=== PATIENT | female | born 1970 | race Asian ===

== ENCOUNTER 2018-09-12 14:59 | Observation (INO) | payer OTHER ==
--- NOTE | 2018-09-12 15:17 | PDOC ---
Rapid Medical Evaluation Time Seen by Provider: 09/12/18 15:13 Medical Evaluation: Allergies Allergy/AdvReac Type Severity Reaction Status Date / Time iron Allergy Unknown Verified 09/12/18 15:14 MAPLE POLLEN Allergy Mild Uncoded 09/12/18 15:14 I have performed a brief in-person evaluation of this patient. The patient presents with a chief complaint of: nausea x 1 week. lower abd pain. no vomiting. no diarrhea. Patient was sent by her PCP to f/u on nausea for possible cholecystitis Pertinent physical exam findings: none I have ordered the following: labs, UA The patient will proceed to the ED for further evaluation. Discharge Disposition - Diagnosis Nausea - Referrals - Patient Instructions - Post Discharge Activity
[2018-09-12 15:18] VITALS: BMI 29.8
--- NOTE | 2018-09-12 16:12 | PDOC ---
History of Present Illness - General Chief Complaint: Pain, Acute Stated Complaint: SENT BY PCP,WEAKNESS Time Seen by Provider: 09/12/18 15:13 - History of Present Illness Initial Comments: 48 yo F w a hx of frequent UTIs, GERD, fibroids - hysterectomy but has a cervix - last PAP 2016 - normal, allergic rhinitis, has been experiencing lower abdominal and pelvic pain for the past month. The pain is on and off and has been getting worse for te last 10 days. She started experiencing nausea, dizziness, and near syncope today so went back to her PCP - Hayley Ogden - who sent her to the ER to get a cat scan with contrast of her abdomen and pelvis. The near syncope, dizziness, lightheadedness began today and appears not to be connected to the pelvic pain issue. She denies recent fevers, chills, or infections. Denies hematuria, STDs, or abnormal vaginal discharge. Denies chest pain, back pain, dysuria, frequency, urgency, recent travel. PCP: Hayley Ogden Allergies: Pollen, iron Psh: Hysterectomy (Still has cervix) Social Hx: Occasional alcohol consumption. Denies smoking, or illicit drug usage. Past History - Past Medical History Allergies/Adverse Reactions: Allergies Allergy/AdvReac Type Severity Reaction Status Date / Time iron Allergy Unknown Verified 09/12/18 15:14 MAPLE POLLEN Allergy Mild Uncoded 09/12/18 15:14 Home Medications: Ambulatory Orders Multivitamin [Multivitamins] 1 each PO UTDICT 10/02/13 Anemia: No Asthma: No Cancer: No Cardiac Disorders: No CVA: No COPD: No CHF: No Dementia: No Diabetes: No GI Disorders: No Disorders: No HTN: No Hypercholesterolemia: No Liver Disease: No Seizures: No Thyroid Disease: No - Surgical History Abdominal Surgery: No Appendectomy: No Cardiac Surgery: No Cholecystectomy: No Lung Surgery: No Neurologic Surgery: No Orthopedic Surgery: No - Suicide/Smoking/Psychosocial Hx Smoking History: Never smoked Have you smoked in the past 12 months: No If you are a former smoker, when did you quit?: 2010 Hx Alcohol Use: Yes (SOCIALLY) Drug/Substance Use Hx: No Substance Use Type: None Hx Substance Use Treatment: No Review of Systems - Review of Systems Comments:: CONSTITUTIONAL: Present: Fatigue Absent: fever, no chills EYES: Absent: visual changes ENT: Absent: ear pain, no sore throat CARDIOVASCULAR: Absent: chest pain, no palpitations RESPIRATORY: Present: SOB Absent: cough GI: Present: Abdominal pain, Nausea Absent: no vomiting, no constipation, no diarrhea GENITOURINARY: Absent: dysuria, no frequency, no hematuria MUSKULOSKELETAL: Absent: back pain, no arthralgia, no myalgia SKIN: Absent: rash NEURO: Absent: headache *Physical Exam - Vital Signs Last Vital Signs Temp Pulse Resp BP Pulse Ox 98 F 63 18 120/63 100 09/12/18 15:17 09/12/18 15:17 09/12/18 15:17 09/12/18 15:17 09/12/18 15:17 - Physical Exam Comments: GENERAL: Well-appearing, well-nourished. No apparent distress. HEENT: Normocephalic, atraumatic. PERRL, EOM intact. CARDIOVASCULAR: Normal S1, S2. Regular rate and rhythm. PULMONARY: Clear to auscultation bilaterally. ABDOMEN: Lower abdomen is tender. Normal BS. Soft, non-distended. Negative Silva, negative psoas, rovsig. No rebound or guarding. Abdomen is not peritoneal. EXTREMITIES: Normal ROM in all four extremities. No gross deformities. SKIN: Warm, dry. No rash NEUROLOGICAL: No focal neurological deficits. Moderate Sedation - Procedure Monitoring Vital Signs: Procedure Monitoring Vital Signs Temperature 98 F 09/12/18 15:17 Pulse Rate 63 09/12/18 15:17 Respiratory Rate 18 09/12/18 15:17 Blood Pressure 120/63 09/12/18 15:17 O2 Sat by Pulse Oximetry (%) 100 09/12/18 15:17 ED Treatment Course - LABORATORY CBC & Chemistry Diagram: 09/12/18 16:00 09/12/18 16:00 Medical Decision Making - Medical Decision Making 48 yo F w a hx of frequent UTIs, GERD, fibroids - hysterectomy but has a cervix - last PAP 2016 - normal, allergic rhinitis, has been experiencing lightheadedness, near syncope, nausea and vomiting. Also lower abdominal and pelvic pain for the past month. DDx IBNLT: Arrhythmia, acs, gastroenteritis, constipation, UTI/pylo, Tumor, fibroids, endometriosis, kidney stones, pelvic pain syndrome, vascular anomaly Plan: Cbc, Cmp, Trop, Hcg, Lipase, CXR, UA, CTAP, re-assess. Labs, cxr unremarkable. CTAP showed marked fecal retention and constipation Will admit patient to tele obs for near syncope. *DC/Admit/Observation/Transfer Diagnosis at time of Disposition: Nausea, Constipation, Near syncope - Discharge Dispostion Condition at time of disposition: Stable Decision to Admit order: Yes - Referrals Referrals: Hayley Ogden [Non Staff, Medical] - - Patient Instructions Printed Discharge Instructions: Constipation (Alternative Therapy), Constipation, DI for Pelvic Pain Additional Instructions: You came into the ER sent from your primary care doctor to have a cat scan performed. We did the cat scan which showed you have alot of feces in your abdomen and that you are likely constipated. We think it would be very smart to go to the pharmacy and milk pickup driver a miralax. This will help with your constipation. Please make sure to schedule a follow up appointment with Hayley Ogden in the next 3 to 5 days. Come back to the ER if your pain worsens, you develop a fever, start vomiting or have any other new or worsening concerns. Thank you for coming to the [facility] ER. We hope you feel better soon! Print Language: YI - Post Discharge Activity
[2018-09-12 16:42] LABS: BASO % 0.4 % (0-2.0); EOS % 0.5 % (0-4.5); HEMATOCRIT 41.7 % (32.4-45.2); HEMOGLOBIN 14.5 GM/dL (10.7-15.3); LYMPH % 11.7 % (8-40); MCH 29.5 pg (25.7-33.7); MCHC 34.7 g/dl (32.0-36.0); MEAN CELL VOLUME 85.1 fl (80-96); MEAN PLT VOLUME 9.7 fl (7.5-11.1); MONO % 6.3 % (3.8-10.2); NEUT % 81.1 % (42.8-82.8); PLATELET COUNT 244 K/MM3 (134-434); RBC 4.91 M/mm3 (3.60-5.2); RDW 12.7 % (11.6-15.6); WHITE BLOOD COUNT 11.3 K/mm3 (4.0-10.0)
[2018-09-12 16:48] LABS: HCG,QUALITATIVE URINE Negative
[2018-09-12 16:58] LABS: URINE APPEARANCE CLEAR; URINE BILIRUBIN NEGATIVE (<2.0 mg/dL); URINE COLOR COLORLESS; URINE GLUCOSE (UA) NEGATIVE (NEGATIVE); URINE KETONE NEGATIVE (NEGATIVE); URINE LEUK ESTERASE TRACE (NEGATIVE); URINE NITRITE NEGATIVE (NEGATIVE); URINE PROTEIN NEGATIVE (NEGATIVE); URINE UROBILINOGEN NEGATIVE mg/dL (0.2-1.0)
[2018-09-12 17:18] LABS: EPI CELLS RARE /HPF (FEW)
[2018-09-12 17:20] LABS: ALBUMIN 3.8 g/dl (3.4-5.0); ALK PHOS 87 U/L (45-117); ANION GAP 7 MMOL/L (8-16); BILIRUBIN,TOTAL 0.3 mg/dL (0.2-1); BLOOD UREA NITROGEN 15 mg/dL (7-18); CALCIUM 9.1 mg/dL (8.5-10.1); CHLORIDE 108 mmol/L (98-107); CO2 26 mmol/L (21-32); GLUCOSE,RANDOM 90 mg/dL (74-106); LIPASE 136 U/L (73-393); POTASSIUM 3.8 mmol/L (3.5-5.1); SGOT/AST 23 U/L (15-37); SGPT/ALT 36 U/L (13-61); SODIUM 140 mmol/L (136-145)
--- NOTE | 2018-09-12 21:17 | PDOC ---
Attending Attestation - Resident Resident Name: Hair Blas - ED Attending Attestation I have performed the following: I have examined & evaluated the patient, The case was reviewed & discussed with the resident, I agree w/resident's findings & plan, Exceptions are as noted - HPI HPI: 09/12/18 21:03 The patient is a 48 year old female, with a significant past medical history of frequent UTIs, GERD, fibroids s/p hysterectomy who presents to the ED complaining of lower abdominal pain for the past month and episodes of lightheadness since this morning. She describes the abd pain as intermittent in nature but worsening a bit over the last 2 weeks. She reports 5 episodes of lightheadness, nausea, and feeling like she will pass out since this morning. No LOC. She denies increased severity of pain prior to these episodes of dizziness, states her abd pain remains at its baseline. She also reports palpitaitons prior to 1 or 2 of the episodes. She went to her PMD today, Dr. Hayley Ogden, who sent her to the ER to get a ct scan with contrast of her abdomen and pelvis. Denies constipation, last BM yestereday The patient denies chest pain, shortness of breath, headache, fever, chills, vomiting, diarrhea or constipation. Denies focal weakness/numbness. Denies dysuria, frequency, urgency and hematuria. PCP: Hayley Ogden Allergies: Pollen, iron Psh: Hysterectomy (Still has cervix) Social Hx: Occasional alcohol consumption. Denies smoking, or illicit drug usage. - Physicial Exam PE: 09/12/18 21:17 GENERAL: Awake, alert, and fully oriented, in no acute distress HEAD: No signs of trauma EYES: PERRLA, EOMI, sclera anicteric, conjunctiva clear ENT: Nares patent, oropharynx clear without exudates. Moist mucosa NECK: Normal ROM, supple, no lymphadenopathy, JVD, or masses LUNGS: Breath sounds equal, clear to auscultation bilaterally. No wheezes, and no crackles HEART: Regular rate and rhythm, normal S1 and S2, no murmurs, rubs or gallops ABDOMEN: Soft, nontender, normoactive bowel sounds. No guarding, no rebound. No masses EXTREMITIES: Normal range of motion, trace b/l pitting edema. No cords, erythema , or tenderness NEUROLOGICAL: Normal speech, cranial nerves intact, 5/5 strength in all 4 extremities, normal sensation to light touch in all 4 extremities, normal cerebellar exam, normal gait SKIN: Warm, Dry, normal turgor, no rashes or lesions noted. - Medical Decision Making 09/12/18 21:19 48yo F presents to the ED with 1 month of abd pain and 5 episodes of lightheadness, nausea and pre-syncope. Pt also reporting palpitations. Vitals wnl. Exam with trace LE pitting edema b/l. CTAP reveals moderate stool burden, b /l small ovarian cysts but no acute pathology. On re-evaluation after CTAP, pt had another episode of nausea and lightheadedness while sitting. Unclear etology of pre-syncopal episodes but in light of persistence as well as intermittent palpitations, will admit to obs on tele monitoring. Heart Score/ECG Review #1 09/12/18 21:19 Twelve-lead EKG was performed and reviewed by me. Normal sinus rhythm, rate 64. Normal axis and intervals. No ST elevations or T-wave inversions.
[2018-09-12] MEDS ORDERED: SODIUM CHLORIDE 0.9% 500 ML INFUS.BAG IV ONE (22:28)
[2018-09-12] MEDS ORDERED: ONDANSETRON 4 MG/2 ML VIAL IVPUSH ONE (22:28)
[2018-09-12] MEDS ORDERED: ONDANSETRON 4 MG/2 ML VIAL ONE (22:57)
[2018-09-12] MEDS ORDERED: POLYETHYLENE GLYCOL 3350 119 GM BTL PO ONE (23:19)
[2018-09-12] MEDS ORDERED: ONDANSETRON 4 MG/2 ML VIAL IVPUSH PRN (23:19)
--- NOTE | 2018-09-12 23:24 | HP ---
CHIEF COMPLAINT: Abdominal/Pelvic Pain, Dizziness, nausea PCP: Melvi HISTORY OF PRESENT ILLNESS: 48 yo female with PMH of Frequent UTIs, GERD, Fibroids s/p Partial hysterectomy , presented to the ED with complaint of one month of intermittent abdominal pain which has worsened over the last few days and increased more so today, complicated by 2 episodes of nausea and lightheadedness + 3 further episodes in the ED. She states that she has seen her pcp multiple times recently for the abdominal pain. She was supposed to get a CT abdomen, though she was waiting on a referral and insurance approval. When her pain worsened today and she had the first episode of nausea and lightheadedness, she went to see her pcp. She had another episode in the office, her pcp did an EKG and sent her to the ED for further evaluation. She currently denies any symptoms other than some mild suprapubic pain. ER course was notable for: (1) CT Abdomen and Pelvis, b/l ovarian follicles, moderate colonic fecal retention (2) EKG normal sinus without any concerning ST/T wave changes (3) Zofran Recent Travel: none PAST MEDICAL HISTORY: Frequent UTIs, GERD, Fibroids s/p Partial hysterectomy PAST SURGICAL HISTORY: Partial Hysterectomy Social History: Smoking: Denies Alcohol: Denies Drugs: Denies Family History: Allergies iron Allergy (Unknown, Verified 09/12/18 15:14) MAPLE POLLEN Allergy (Mild, Uncoded 09/12/18 15:14) SNEEZING HOME MEDICATIONS: Home Medications Medication Instructions Recorded Multivitamin [Multivitamins] 1 each PO UTDICT 10/02/13 REVIEW OF SYSTEMS CONSTITUTIONAL: Absent: fever, chills, diaphoresis, generalized weakness, malaise, loss of appetite, weight change HEENT: Absent: rhinorrhea, nasal congestion, throat pain, throat swelling, difficulty swallowing, mouth swelling, ear pain, eye pain, visual changes CARDIOVASCULAR: Absent: chest pain, syncope, palpitations, irregular heart rate, lightheadedness , peripheral edema RESPIRATORY: Absent: cough, shortness of breath, dyspnea with exertion, orthopnea, wheezing, stridor, hemoptysis GASTROINTESTINAL: abdominal pain, nausea Absent: , abdominal distension, vomiting, diarrhea, constipation, melena, hematochezia GENITOURINARY: Absent: dysuria, frequency, urgency, hesitancy, hematuria, flank pain, genital pain MUSCULOSKELETAL: Absent: myalgia, arthralgia, joint swelling, back pain, neck pain SKIN: Absent: rash, itching, pallor HEMATOLOGIC/IMMUNOLOGIC: Absent: easy bleeding, easy bruising, lymphadenopathy, frequent infections ENDOCRINE: Absent: unexplained weight gain, unexplained weight loss, heat intolerance, cold intolerance NEUROLOGIC: Absent: headache, focal weakness or paresthesias, dizziness, unsteady gait, seizure, mental status changes, bladder or bowel incontinence PSYCHIATRIC: Absent: anxiety, depression, suicidal or homicidal ideation, hallucinations. PHYSICAL EXAMINATION Vital Signs - 24 hr 09/12/18 09/12/18 15:17 19:33 Temperature 98 F 98.1 F Pulse Rate 63 Pulse Rate [ 70 Left Radial] Respiratory 18 Rate Blood Pressure 120/63 Blood Pressure 96/74 [Left Arm] O2 Sat by Pulse 100 98 Oximetry (%) GENERAL: A&O, no acute distress HEAD: Normocephalic, atraumatic. EYES: PERRL, no scleral icterus EARS, NOSE, THROAT: oropharynx clear without exudates. Moist mucous membranes. NECK: supple without lymphadenopathy LUNGS: CTA b/l, no crackles or wheezes HEART: Regular rate and rhythm, normal S1 and S2 without murmur ABDOMEN: Soft, suprapubic region tender to palpation, normoactive bowel sounds MUSCULOSKELETAL: No bony deformities or tenderness. EXTREMITIES: 2+ pulses, warm, well-perfused. No peripheral edema. NEUROLOGICAL: Cranial nerves II-XII grossly intact. Normal speech. Laboratory Results - last 24 hr 09/12/18 09/12/18 09/12/18 15:52 16:00 16:00 WBC 11.3 H RBC 4.91 Hgb 14.5 Hct 41.7 MCV 85.1 MCH 29.5 MCHC 34.7 RDW 12.7 Plt Count 244 D MPV 9.7 Absolute Neuts (auto) 9.2 H Neutrophils % 81.1 Lymphocytes % 11.7 D Monocytes % 6.3 Eosinophils % 0.5 Basophils % 0.4 Nucleated RBC % 0 Sodium 140 Potassium 3.8 Chloride 108 H Carbon Dioxide 26 Anion Gap 7 L BUN 15 Creatinine 1.0 Creat Clearance w eGFR 58.93 POC Glucometer Random Glucose 90 Calcium 9.1 Total Bilirubin 0.3 AST 23 ALT 36 Alkaline Phosphatase 87 Troponin I < 0.02 Total Protein 7.0 Albumin 3.8 Lipase 136 Urine Color Colorless Urine Appearance Clear Urine pH 6.0 Ur Specific [place] 1.002 L Urine Protein Negative Urine Glucose (UA) Negative Urine Ketones Negative Urine Blood 1+ H Urine Nitrite Negative Urine Bilirubin Negative Urine Urobilinogen Negative Ur Leukocyte Esterase Trace Urine WBC (Auto) <1 Urine RBC (Auto) 1 Ur Epithelial Cells Rare Urine HCG, Qual Negative 09/12/18 16:11 WBC RBC Hgb Hct MCV MCH MCHC RDW Plt Count MPV Absolute Neuts (auto) Neutrophils % Lymphocytes % Monocytes % Eosinophils % Basophils % Nucleated RBC % Sodium Potassium Chloride Carbon Dioxide Anion Gap BUN Creatinine Creat Clearance w eGFR POC Glucometer [phone] Random Glucose Calcium Total Bilirubin AST ALT Alkaline Phosphatase Troponin I Total Protein Albumin Lipase Urine Color Urine Appearance Urine pH Ur Specific [place] Urine Protein Urine Glucose (UA) Urine Ketones Urine Blood Urine Nitrite Urine Bilirubin Urine Urobilinogen Ur Leukocyte Esterase Urine WBC (Auto) Urine RBC (Auto) Ur Epithelial Cells Urine HCG, Qual ASSESSMENT/PLAN: 48 yo female with PMH of Frequent UTIs, GERD, Fibroids s/p Partial hysterectomy , presented to the ED with complaint of one month of intermittent abdominal pain which has worsened over the last few days and increased more so today, complicated by 2 episodes of nausea and lightheadedness + 3 further episodes in the ED Nausea/Lightheadedness/Presyncope -Pt denies LOC or head trauma -EKG normal sinus without any concerning ST/T wave changes -Telemetry observation to r/o arrhythmia not seen on EKG -Head CT with combination new onset nausea and lightheadedness Abdominal Pain -Colonic retention noted on CT vs b/l Ovarian follicles -Myralax BID, Senna 2 Tabs HS -Increase PO Fluid intake -Consider consultation for Gynecology to r/o ovarian follicles as source of her pain -Pt will likely require outpatient colonoscopy Leukocytosis -Possibly mild elevation due to inflammatory process with fecal retention/cause of abdominal pain -Afebrile with stable vital signs -Repeat CBC pending to trend WBC count, will consider further possibility of infectious cause if WBC count continues to rise DVT Prophylaxis -Lovenox 40 mg SQ Daily FEN -Fluids: LR at 100 cc/hr -Electrolytes: No electrolyte abnormalities, BMP in AM -Nutrition: Regular Diet Disposition Observation Visit type - Emergency Visit Emergency Visit: Yes ED Registration Date: 09/12/18 Care time: The patient presented to the Emergency Department on the above date and was hospitalized for further evaluation of their emergent condition. - New Patient This patient is new to me today: Yes Date on this admission: 09/13/18 - Critical Care Critical Care patient: No
[2018-09-12] MEDS ORDERED: LACTATED RINGERS SOLUTION 1,000 ML IV SCH (23:30)
--- NOTE | 2018-09-13 00:23 | PN ---
Teaching Attending Note Name of Resident: Terrell Cruz ATTENDING PHYSICIAN STATEMENT I saw and evaluated the patient. I reviewed the resident's note and discussed the case with the resident. I agree with the resident's findings and plan as documented. SUBJECTIVE: Patient is a 48 year old woman with PMH of Frequent UTIs, GERD, and Fibroids s/ p Partial hysterectomy who presented to the ER with complaint of one month of intermittent abdominal pain which has worsened over the last few days and increased more so today, complicated by 2 episodes of nausea and lightheadedness + 3 further episodes in the ER. She states that she has seen her PCP multiple times recently for the abdominal pain. She was supposed to get a CT abdomen, though she was waiting on a referral and insurance approval. When her pain worsened today and she had the first episode of nausea and lightheadedness, she went to see her pcp. She had another episode in the office , her pcp did an EKG and sent her to the ED for further evaluation. She currently denies any symptoms other than some mild suprapubic pain. OBJECTIVE: Alert Vital Signs Period Temp Pulse Resp BP Sys/Field Pulse Ox Last 24 Hr 98 F-98.1 F 63-70 18 96-120/63-74 98-100 HEENT: No Jaundice, eye redness or discharge, PERRLA, EOMI. Normocephalic, atraumatic. External ears are normal and hearing is grossly intact. No nasal discharge. Neck: Supple, nontender. No palpable adenopathy or thyromegaly. No JVD Chest: Good effort. Clear to auscultation and percussion. Heart: Regular. No S3, rub or murmur Abdomen: Not distended, soft, mild suprapubic tenderness and no HSM. No rebound or guarding. Normoactive bowel sounds. Ext: Peripheral pulses intact. No leg edema. Skin: Warm and dry. No petechiae, rash or ecchymosis. Neuro: Alert. Oriented x3. CN 2-12 grossly intact. Sensation grossly intact in all four extremities and DTR are symmetric. Current Medications Generic Name Dose Route Start Last Admin Trade Name Freq PRN Reason Stop Dose Admin Enoxaparin Sodium 40 mg 09/13/18 10:00 Lovenox - SQ DAILY DEE DEE Lactated Ringer's 1,000 mls @ 100 mls/hr 09/12/18 23:30 Lactated Ringers Solution IV ASDIR DEE DEE Ondansetron HCl 4 mg 09/12/18 23:19 Zofran Injection IVPUSH Q6H PRN NAUSEA Polyethylene Glycol 17 gm 09/13/18 10:00 Miralax (For Daily Use) - PO DAILY DEE DEE Senna 2 tab 09/13/18 22:00 Senna - PO HS DEE DEE Home Medications Medication Instructions Recorded Multivitamin [Multivitamins] 1 each PO UTDICT 10/02/13 Abnormal Lab Results 09/12/18 09/12/18 09/12/18 15:52 16:00 16:00 WBC 11.3 H Absolute Neuts (auto) 9.2 H Chloride 108 H Anion Gap 7 L Ur Specific [place] 1.002 L Urine Blood 1+ H ASSESSMENT AND PLAN: 1. Abdominal pain and Presyncope - Has had chronic unexplained lower abdominal pain. Had 5 episodes of lightheadedness associated with nausea in the past 24 hours. Though she professes daily "normal" bowel movements, CT scan with IV contrast shows moderate colonic fecal retention. Also showed involuting ovarian follicle. Leukocytosis is unexplained. Will get a head CT, treat with miralax, senna and enema, IV NS, liberal oral fluids, zofran and repeat CBC. Outpatient colonoscopy. Consult PIPE PROCESSOR - could abdominal pain be due to Senior Electrical Designer issue?. 2. DVT prophylaxis - Lovenox 40 mg SQ q 24 hours. 3. Advance directives - Full code
[2018-09-13 01:36] LABS: HEMATOCRIT 38.2 % (32.4-45.2); HEMOGLOBIN 13.4 GM/dL (10.7-15.3); MCHC 35.1 g/dl (32.0-36.0); MEAN CELL VOLUME 85.4 fl (80-96); MEAN PLT VOLUME 9.4 fl (7.5-11.1); PLATELET COUNT 227 K/MM3 (134-434); RBC 4.47 M/mm3 (3.60-5.2); RDW 12.9 % (11.6-15.6); WHITE BLOOD COUNT 9.2 K/mm3 (4.0-10.0)
[2018-09-13 07:24] LABS: BASO % 0.2 % (0-2.0); EOS % 1.8 % (0-4.5); HEMATOCRIT 37.5 % (32.4-45.2); HEMOGLOBIN 13.1 GM/dL (10.7-15.3); LYMPH % 20.1 % (8-40); MCH 29.9 pg (25.7-33.7); MCHC 34.9 g/dl (32.0-36.0); MEAN CELL VOLUME 85.6 fl (80-96); MEAN PLT VOLUME 9.7 fl (7.5-11.1); MONO % 7.7 % (3.8-10.2); NEUT % 70.2 % (42.8-82.8); PLATELET COUNT 219 K/MM3 (134-434); RBC 4.38 M/mm3 (3.60-5.2); RDW 12.7 % (11.6-15.6); WHITE BLOOD COUNT 7.3 K/mm3 (4.0-10.0)
[2018-09-13] MEDS ORDERED: BISACODYL 10 MG SUPP.RECT RC ONE (07:58)
[2018-09-13 08:17] LABS: ANION GAP 10 MMOL/L (8-16); BLOOD UREA NITROGEN 18 mg/dL (7-18); CHLORIDE 109 mmol/L (98-107); CO2 22 mmol/L (21-32); GLUCOSE,RANDOM 85 mg/dL (74-106); PHOSPHOROUS 3.2 mg/dL (2.5-4.9); POTASSIUM 4.2 mmol/L (3.5-5.1); SODIUM 142 mmol/L (136-145)
[2018-09-13] MEDS: DOCUSATE SODIUM 100 MG CAPSULE (FP) PO SCH ×2 (08:28→15:06)
[2018-09-13] MEDS ORDERED: POLYETHYLENE GLYCOL 3350 119 GM BTL PO SCH (10:00)
[2018-09-13] MEDS ORDERED: ENOXAPARIN NA (PORCINE) 40 MG/0.4 ML DISP.SYRIN SQ SCH (10:00)
--- NOTE | 2018-09-13 11:46 | EKG ---
Test Reason : Blood Pressure : / mmHG Vent. Rate : 064 BPM Atrial Rate : 064 BPM P-R Int : 134 ms QRS Dur : 094 ms QT Int : 406 ms P-R-T Axes : 041 052 051 degrees QTc Int : 418 ms NORMAL SINUS RHYTHM NORMAL ECG WHEN COMPARED WITH ECG OF 27-SEP-2013 10:29, NO SIGNIFICANT CHANGE WAS FOUND Confirmed by DEWEY DEVRIES MD ([id number]) on 09/13/2018 11:45:35 AM Referred By: Confirmed By:DEWEY DEVRIES MD
--- NOTE | 2018-09-13 13:40 | PN ---
Physical Exam: SUBJECTIVE: Patient seen and examined at bedside- no acute events overnight; patient states she is feeling well and is no longer having anymore dizzy spell episodes and she is no longer nauseous; she denies any CP/SOB/N/V fevers or chills OBJECTIVE: Vital Signs Period Temp Pulse Resp BP Sys/Field Pulse Ox Last 24 Hr 97.9 F-98.2 F 60-93 16-20 96-123/56-77 97-100 GENERAL: The patient is awake, alert, and fully oriented, in no acute distress. EYES: no scleral icterus NECK: no JVD, no lymphadenopathy LUNGS:CTA B/L no rales, rhonchi or wheezing. HEART: Regular rate and rhythm, S1, S2 without murmur, rub or gallop. ABDOMEN: Soft, nontender, nondistended, normoactive bowel sounds, no guarding, no rebound, no hepatosplenomegaly, no masses. EXTREMITIES: 2+ pulses, warm, well-perfused, no edema. PSYCH: Normal mood, normal affect. SKIN: Warm, dry, normal turgor, no rashes or lesions noted Laboratory Results - last 24 hr 09/12/18 09/12/18 09/12/18 15:52 16:00 16:00 WBC 11.3 H RBC 4.91 Hgb 14.5 Hct 41.7 MCV 85.1 MCH 29.5 MCHC 34.7 RDW 12.7 Plt Count 244 D MPV 9.7 Absolute Neuts (auto) 9.2 H Neutrophils % 81.1 Lymphocytes % 11.7 D Monocytes % 6.3 Eosinophils % 0.5 Basophils % 0.4 Nucleated RBC % 0 Sodium 140 Potassium 3.8 Chloride 108 H Carbon Dioxide 26 Anion Gap 7 L BUN 15 Creatinine 1.0 Creat Clearance w eGFR 58.93 POC Glucometer Random Glucose 90 Calcium 9.1 Phosphorus Magnesium Total Bilirubin 0.3 AST 23 ALT 36 Alkaline Phosphatase 87 Troponin I < 0.02 Total Protein 7.0 Albumin 3.8 Lipase 136 TSH Urine Color Colorless Urine Appearance Clear Urine pH 6.0 Ur Specific [place] 1.002 L Urine Protein Negative Urine Glucose (UA) Negative Urine Ketones Negative Urine Blood 1+ H Urine Nitrite Negative Urine Bilirubin Negative Urine Urobilinogen Negative Ur Leukocyte Esterase Trace Urine WBC (Auto) <1 Urine RBC (Auto) 1 Ur Epithelial Cells Rare Urine HCG, Qual Negative 09/12/18 09/13/18 09/13/18 16:11 01:25 06:00 WBC 9.2 RBC 4.47 Hgb 13.4 Hct 38.2 MCV 85.4 MCH 30.0 MCHC 35.1 RDW 12.9 Plt Count 227 MPV 9.4 Absolute Neuts (auto) Neutrophils % Lymphocytes % Monocytes % Eosinophils % Basophils % Nucleated RBC % Sodium 142 Potassium 4.2 Chloride 109 H Carbon Dioxide 22 Anion Gap 10 BUN 18 Creatinine 1.0 Creat Clearance w eGFR 58.93 POC Glucometer 119.32509 Random Glucose 85 Calcium Phosphorus 3.2 Magnesium 2.0 Total Bilirubin AST ALT Alkaline Phosphatase Troponin I Total Protein Albumin Lipase TSH 2.58 Urine Color Urine Appearance Urine pH Ur Specific [place] Urine Protein Urine Glucose (UA) Urine Ketones Urine Blood Urine Nitrite Urine Bilirubin Urine Urobilinogen Ur Leukocyte Esterase Urine WBC (Auto) Urine RBC (Auto) Ur Epithelial Cells Urine HCG, Qual 09/13/18 06:00 WBC 7.3 RBC 4.38 Hgb 13.1 Hct 37.5 MCV 85.6 MCH 29.9 MCHC 34.9 RDW 12.7 Plt Count 219 MPV 9.7 Absolute Neuts (auto) 5.1 Neutrophils % 70.2 Lymphocytes % 20.1 D Monocytes % 7.7 Eosinophils % 1.8 D Basophils % 0.2 Nucleated RBC % 0 Sodium Potassium Chloride Carbon Dioxide Anion Gap BUN Creatinine Creat Clearance w eGFR POC Glucometer Random Glucose Calcium Phosphorus Magnesium Total Bilirubin AST ALT Alkaline Phosphatase Troponin I Total Protein Albumin Lipase TSH Urine Color Urine Appearance Urine pH Ur Specific [place] Urine Protein Urine Glucose (UA) Urine Ketones Urine Blood Urine Nitrite Urine Bilirubin Urine Urobilinogen Ur Leukocyte Esterase Urine WBC (Auto) Urine RBC (Auto) Ur Epithelial Cells Urine HCG, Qual Active Medications Generic Name Dose Route Start Last Admin Trade Name Freq PRN Reason Stop Dose Admin Docusate Sodium 100 mg 09/13/18 08:00 09/13/18 08:28 Colace - PO 100 mg TID DEE DEE Administration Enoxaparin Sodium 40 mg 09/13/18 10:00 09/13/18 09:12 Lovenox - SQ 40 mg DAILY DEE DEE Administration Lactated Ringer's 1,000 mls @ 100 mls/hr 09/12/18 23:30 09/13/18 02:35 Lactated Ringers Solution IV 100 mls/hr ASDIR DEE DEE Administration Ondansetron HCl 4 mg 09/12/18 23:19 Zofran Injection IVPUSH Q6H PRN NAUSEA Polyethylene Glycol 17 gm 09/13/18 10:00 09/13/18 09:12 Miralax (For Daily Use) - PO 17 gm DAILY DEE DEE Administration Senna 2 tab 09/13/18 22:00 Senna - PO HS DEE DEE ASSESSMENT/PLAN: 48 yo female with PMH of Frequent UTIs, GERD, Fibroids s/p Partial hysterectomy , presented to the ED with complaint of one month of intermittent abdominal pain which has worsened over the last few days and increased more so today, complicated by 2 episodes of nausea and lightheadedness + 3 further episodes in the ED Nausea/Lightheadedness/Presyncope -Pt denies LOC or head trauma -EKG normal sinus without any concerning ST/T wave changes -Telemetry observation: patient have PVCS overnight on tele -Head CT negative -echo pending -patient going for stress test -cardio consulted Abdominal Pain -Colonic retention noted on CT vs b/l Ovarian follicles -Transvaginal ultrasound pending -Myralax BID, Senna 2 Tabs HS -Increase PO Fluid intake -mule rider consult as outpatient -Pt will likely require outpatient colonoscopy Leukocytosis -Possibly mild elevation due to inflammatory process with fecal retention/cause of abdominal pain -Afebrile with stable vital signs -Repeat CBC pending to trend WBC count, will consider further possibility of infectious cause if WBC count continues to rise DVT Prophylaxis -Lovenox 40 mg SQ Daily FEN -Fluids: LR at 100 cc/hr -Electrolytes: No electrolyte abnormalities, BMP in AM -Nutrition: Regular Diet Problem List - Problems (1) Constipation Code(s): K59.00 - CONSTIPATION, UNSPECIFIED (2) Near syncope Code(s): R55 - SYNCOPE AND COLLAPSE Visit type - Emergency Visit Emergency Visit: Yes ED Registration Date: 09/12/18 Care time: The patient presented to the Emergency Department on the above date and was hospitalized for further evaluation of their emergent condition. - New Patient This patient is new to me today: Yes Date on this admission: 09/13/18 - Critical Care Critical Care patient: No
--- NOTE | 2018-09-13 15:08 | TRE ---
Protocol Name : MARCIA Max Work Load (METS*10) : 56 Time In Exercise Phase : 00:03:55 Max. Systolic BP : 142 mmHg Max Diastolic BP : 86 mmHg Max Heart Rate : 146 BPM Max Predicted Heart Rate : 171 BPM Attending Physician : DR. MARTIN Reason For Termination : Target Heart Rate Achieved Reason for Test : R/O ACS Stress Protocol : MARCIA Rest HR : 105 BPM PeakEx METs : 5.6 METS Recovery ECG Response (OLD) : Diagnosis : The patient completed 3:55 standard Marcia Protocol achieving a work load of 6 METS. The resting heart rate of 75bpm dayo to a peak of 146bpm= 85% of age predicted maximum. The resting blood pressure of 122/82 dayo to a maximum of 142/86. The test was stopped was stopped due to achievement of the target hear rate. The baseline ECG showed NSR at 77bpm with early repolarization. No ischemic ST changes were seen during exercise nor during recovery. No arrhythmias. CONCLUSION: Negative exercise treadmill stress test with no ischemic ST changes, arrhythmias or symptoms during exercise. Confirmed by HERNANDO MARTIN MD ([id number]) on 09/13/2018 3:08:20 PM
--- NOTE | 2018-09-13 15:37 | PN ---
Teaching Attending Note Name of Resident: Tracey Floyd ATTENDING PHYSICIAN STATEMENT I saw and evaluated the patient. I reviewed the resident's note and discussed the case with the resident. I agree with the resident's findings and plan as documented with exceptions below. SUBJECTIVE: Patient seen and examined. No further episodes of dizziness, diaphoresis noted. Described the first episode as diaphoresis, light headedness, felt was about to pass out, with self resolution. episode in ED in the setting of blood draw. Ongoing lower abdominal pain for a month, being worked up outpatient by her PCP. Reports regular BM. First episode associated with spinning, no recent URI like illness. First episode associated with some palpitations. Reports has been under stress lately. OBJECTIVE: Vital Signs Period Temp Pulse Resp BP Sys/Field Pulse Ox Last 24 Hr 97.9 F-98.2 F 60-93 16-20 96-123/56-77 97-100 Intake & Output 09/10/18 09/11/18 09/12/18 09/13/18 23:59 23:59 23:59 23:59 Intake Total 1091 Balance 1091 Weight 185 lb 185 lb General: sitting in bed in no acute distress CVS:S1S2 regular Chest: CTAB, no rales or wheezing Abdomen: soft, lower abdominal tenderness, no voluntary or involuntary guarding or rigidity, positive bowel sounds Extremities: no edema Neuro: AAOX3, facial symmetry, power 5/5, sensation intact to light touch cranial nerves II-XII grossly intact Home Medications Medication Instructions Recorded Multivitamin [Multivitamins] 1 each PO UTDICT 10/02/13 Docusate Sodium [Colace -] 100 mg PO TID capsule 09/13/18 Polyethylene Glycol 3350 [Miralax 17 gm PO DAILY PRN #1 bottle 09/13/18 119 gm Btl -] Sennosides [Senna -] 2 tab PO HS tablet 09/13/18 Laboratory Results - last 24 hr 09/12/18 09/12/18 09/12/18 15:52 16:00 16:00 WBC 11.3 H RBC 4.91 Hgb 14.5 Hct 41.7 MCV 85.1 MCH 29.5 MCHC 34.7 RDW 12.7 Plt Count 244 D MPV 9.7 Absolute Neuts (auto) 9.2 H Neutrophils % 81.1 Lymphocytes % 11.7 D Monocytes % 6.3 Eosinophils % 0.5 Basophils % 0.4 Nucleated RBC % 0 Sodium 140 Potassium 3.8 Chloride 108 H Carbon Dioxide 26 Anion Gap 7 L BUN 15 Creatinine 1.0 Creat Clearance w eGFR 58.93 POC Glucometer Random Glucose 90 Calcium 9.1 Phosphorus Magnesium Total Bilirubin 0.3 AST 23 ALT 36 Alkaline Phosphatase 87 Troponin I < 0.02 Total Protein 7.0 Albumin 3.8 Lipase 136 TSH Urine Color Colorless Urine Appearance Clear Urine pH 6.0 Ur Specific [place] 1.002 L Urine Protein Negative Urine Glucose (UA) Negative Urine Ketones Negative Urine Blood 1+ H Urine Nitrite Negative Urine Bilirubin Negative Urine Urobilinogen Negative Ur Leukocyte Esterase Trace Urine WBC (Auto) <1 Urine RBC (Auto) 1 Ur Epithelial Cells Rare Urine HCG, Qual Negative 09/12/18 09/13/18 09/13/18 16:11 01:25 06:00 WBC 9.2 RBC 4.47 Hgb 13.4 Hct 38.2 MCV 85.4 MCH 30.0 MCHC 35.1 RDW 12.9 Plt Count 227 MPV 9.4 Absolute Neuts (auto) Neutrophils % Lymphocytes % Monocytes % Eosinophils % Basophils % Nucleated RBC % Sodium 142 Potassium 4.2 Chloride 109 H Carbon Dioxide 22 Anion Gap 10 BUN 18 Creatinine 1.0 Creat Clearance w eGFR 58.93 POC Glucometer [phone] Random Glucose 85 Calcium Phosphorus 3.2 Magnesium 2.0 Total Bilirubin AST ALT Alkaline Phosphatase Troponin I Total Protein Albumin Lipase TSH 2.58 Urine Color Urine Appearance Urine pH Ur Specific [place] Urine Protein Urine Glucose (UA) Urine Ketones Urine Blood Urine Nitrite Urine Bilirubin Urine Urobilinogen Ur Leukocyte Esterase Urine WBC (Auto) Urine RBC (Auto) Ur Epithelial Cells Urine HCG, Qual 09/13/18 06:00 WBC 7.3 RBC 4.38 Hgb 13.1 Hct 37.5 MCV 85.6 MCH 29.9 MCHC 34.9 RDW 12.7 Plt Count 219 MPV 9.7 Absolute Neuts (auto) 5.1 Neutrophils % 70.2 Lymphocytes % 20.1 D Monocytes % 7.7 Eosinophils % 1.8 D Basophils % 0.2 Nucleated RBC % 0 Sodium Potassium Chloride Carbon Dioxide Anion Gap BUN Creatinine Creat Clearance w eGFR POC Glucometer Random Glucose Calcium Phosphorus Magnesium Total Bilirubin AST ALT Alkaline Phosphatase Troponin I Total Protein Albumin Lipase TSH Urine Color Urine Appearance Urine pH Ur Specific [place] Urine Protein Urine Glucose (UA) Urine Ketones Urine Blood Urine Nitrite Urine Bilirubin Urine Urobilinogen Ur Leukocyte Esterase Urine WBC (Auto) Urine RBC (Auto) Ur Epithelial Cells Urine HCG, Qual 2D echo, stress test, CT head, transvaginal/pelvic US, CT A/P results reviewed Telemetry occasional PVCs ASSESSMENT AND PLAN: 48 yof with chronic abdominal pain, here with near syncopal episodes. -Near syncopal episodes, ? vagal (episode in ED in the setting of blood draw), r /o arrhythmia (occasional PVCs on telemetry), psychogenic (stressors lately with vague non positional symptoms), presentation unlikely from BPPV or neurogenic -ABdominal pain, ?constipation mediated Plan: Telemetry with occasional PVCs. episodes in ED with no concerns for arrhthymia. stress test/2D echo noted. Discussed with patient for outpatient Holter monitoring. Bowel regimen, outpatient GI referral. Patient advised rest, maintain adequate hydration. d/c home today with outpatient PCP/cardiology follow up and possible Holter monitoring outpatient. Plan was discussed with patient in detail, all questions answered.
--- NOTE | 2018-09-13 15:50 | ECHO ---
Name: DE, STEFF Exam:Adult Echocardiogram Study Date: 09/13/2018 03:15 PM Age: 48 yrs Reason For Study: SYNCOPE Height: 66 in Weight: 185 lb BSA: 1.9 m2 MMode/2D Measurements & Calculations IVSd: 1.0 cm Ao root diam: 2.3 cm LVIDd: 3.9 cm ACS: 1.9 cm LVIDs: 3.1 cm LVPWd: 1.5 cm EDV(Teich): 65.7 ml LVOT diam: 2.0 cm ESV(Teich): 38.2 ml RV S Anand: 12.0 cm/sec Doppler Measurements & Calculations Med Peak E' Anand: 8.5 cm/sec Lat Peak E' Anand: 8.8 cm/sec Left Ventricle Left ventricular systolic function is normal. Ejection Fraction = 55-60%. Right Ventricle The right ventricle is normal in size and function. Atria Normal left and right atrial size and function. Mitral Valve The mitral valve is normal in structure and function. There is no mitral valve stenosis. There is tra ce to mild mitral regurgitation. Tricuspid Valve The tricuspid valve is normal in structure and function. There is Trace to mild tricuspid regurgitati on. Aortic Valve The aortic valve is trileaflet. No hemodynamically significant valvular aortic stenosis. No aortic regurgitation is present. Pulmonic Valve The pulmonic valve is not well seen, but is grossly normal. There is no pulmonic valvular stenosis. T here is no pulmonic valvular regurgitation. Great Vessels The aortic root is normal size. Pericardium/Pleura There is no pericardial effusion. Interpretation Summary Left ventricular systolic function is normal. Ejection Fraction = 55-60%. There is trace to mild mitral regurgitation. There is Trace to mild tricuspid regurgitation. There is no pericardial effusion. MD Carrington *[place] 09/13/2018 03:49 PM
[2018-09-13 15:53] VITALS: BP 113/70; PULSE 63; TEMP 98
--- NOTE | 2018-09-13 16:23 | DS ---
Physical Exam: SUBJECTIVE: Patient seen and examined at bedside no acute events overnight patient is no longer having any dizzy spells or abdomial pain she denies any CP/ SOB/N/V fevers or chills OBJECTIVE: Vital Signs Period Temp Pulse Resp BP Sys/Field Pulse Ox Last 24 Hr 97.9 F-98.2 F 60-93 16-20 96-123/56-77 97-100 PHYSICAL EXAM GENERAL: The patient is awake, alert, and fully oriented, in no acute distress. EYES: no scleral icterus NECK: n JVD no lympahdenopathy LUNGS: CTA B/L; no rales, rhonchi or wheezing HEART: Regular rate and rhythm, S1, S2 without murmur, rub or gallop. ABDOMEN: Soft, nontender, nondistended, normoactive bowel sounds, no guarding, no rebound, no hepatosplenomegaly, no masses. EXTREMITIES: 2+ pulses, warm, well-perfused, no edema. SKIN: Warm, dry, normal turgor, no rashes or lesions noted. LABS Laboratory Results - last 24 hr 09/12/18 09/12/18 09/12/18 15:52 16:00 16:00 WBC 11.3 H RBC 4.91 Hgb 14.5 Hct 41.7 MCV 85.1 MCH 29.5 MCHC 34.7 RDW 12.7 Plt Count 244 D MPV 9.7 Absolute Neuts (auto) 9.2 H Neutrophils % 81.1 Lymphocytes % 11.7 D Monocytes % 6.3 Eosinophils % 0.5 Basophils % 0.4 Nucleated RBC % 0 Sodium 140 Potassium 3.8 Chloride 108 H Carbon Dioxide 26 Anion Gap 7 L BUN 15 Creatinine 1.0 Creat Clearance w eGFR 58.93 POC Glucometer Random Glucose 90 Calcium 9.1 Phosphorus Magnesium Total Bilirubin 0.3 AST 23 ALT 36 Alkaline Phosphatase 87 Troponin I < 0.02 Total Protein 7.0 Albumin 3.8 Lipase 136 TSH Urine Color Colorless Urine Appearance Clear Urine pH 6.0 Ur Specific [place] 1.002 L Urine Protein Negative Urine Glucose (UA) Negative Urine Ketones Negative Urine Blood 1+ H Urine Nitrite Negative Urine Bilirubin Negative Urine Urobilinogen Negative Ur Leukocyte Esterase Trace Urine WBC (Auto) <1 Urine RBC (Auto) 1 Ur Epithelial Cells Rare Urine HCG, Qual Negative 09/12/18 09/13/18 09/13/18 16:11 01:25 06:00 WBC 9.2 RBC 4.47 Hgb 13.4 Hct 38.2 MCV 85.4 MCH 30.0 MCHC 35.1 RDW 12.9 Plt Count 227 MPV 9.4 Absolute Neuts (auto) Neutrophils % Lymphocytes % Monocytes % Eosinophils % Basophils % Nucleated RBC % Sodium 142 Potassium 4.2 Chloride 109 H Carbon Dioxide 22 Anion Gap 10 BUN 18 Creatinine 1.0 Creat Clearance w eGFR 58.93 POC Glucometer 119.54921 Random Glucose 85 Calcium Phosphorus 3.2 Magnesium 2.0 Total Bilirubin AST ALT Alkaline Phosphatase Troponin I Total Protein Albumin Lipase TSH 2.58 Urine Color Urine Appearance Urine pH Ur Specific [place] Urine Protein Urine Glucose (UA) Urine Ketones Urine Blood Urine Nitrite Urine Bilirubin Urine Urobilinogen Ur Leukocyte Esterase Urine WBC (Auto) Urine RBC (Auto) Ur Epithelial Cells Urine HCG, Qual 09/13/18 06:00 WBC 7.3 RBC 4.38 Hgb 13.1 Hct 37.5 MCV 85.6 MCH 29.9 MCHC 34.9 RDW 12.7 Plt Count 219 MPV 9.7 Absolute Neuts (auto) 5.1 Neutrophils % 70.2 Lymphocytes % 20.1 D Monocytes % 7.7 Eosinophils % 1.8 D Basophils % 0.2 Nucleated RBC % 0 Sodium Potassium Chloride Carbon Dioxide Anion Gap BUN Creatinine Creat Clearance w eGFR POC Glucometer Random Glucose Calcium Phosphorus Magnesium Total Bilirubin AST ALT Alkaline Phosphatase Troponin I Total Protein Albumin Lipase TSH Urine Color Urine Appearance Urine pH Ur Specific [place] Urine Protein Urine Glucose (UA) Urine Ketones Urine Blood Urine Nitrite Urine Bilirubin Urine Urobilinogen Ur Leukocyte Esterase Urine WBC (Auto) Urine RBC (Auto) Ur Epithelial Cells Urine HCG, Qual HOSPITAL COURSE: Date of Admission:09/12/18 48 y.o female with PMH of firboids, hysterectomy UTI GERD presented to the hospital after she had vbeen having multiple dizzy episdoes - yestetday she was at work and had 4 epideos. she states that she was dizzy nauseous and felt like she was going to pass out hwoever she never did. she has never had any episodes like this in the past. she had been ahving abdominal pain for the past month and was being treated for BV she finsihed 8 days of flagyl. on arrival her vitals and labs were stable, a pelvic US was done which showed ovarian cysts but no acute patholgoy. U/A was negative, stress test and echo were negative. patient was told to follow up with her PCP within one week to discuss possible need for holter and patient was alsso given cardio referral. Date of Discharge: 09/13/18 Minutes to complete discharge: 39 Discharge Summary Reason For Visit: PRE SYNCOPE Current Active Problems Constipation (Acute) Nausea (Acute) Near syncope (Acute) Condition: Stable - Instructions Diet, Activity, Other Instructions: You came into the ER sent from your primary care doctor after you were having multiple episodes of dizzy spells in addition to abdominal pain for the last month and constipation. You had 2D echo, stress test, CT head of your head. You had CT scan of your belly showing constipation and transvaginal US with ovarian follicles. Please resume all of your home medications in addition: -We are prescribing you miralax for your constipation that you should use if you have not had a bowel movement in 2 days. In addition we advise that you take over the counter medication, such as colace or senna . We encourage you to increase your water intake and to follow a high-fiber diet. In regards to the dizzy episodes you were having, we are referring you to a newspaper writer, Dr. Henry, please make an appointment to see him within a week. For the time being please avoid driving until you see either Dr. Ogden or Dr. Henry. We advise that you follow up with Dr. Ogden within one week and discuss with her about the potential need for a holter monitor given your dizzy spells. *if you being to experience anymore dizzy spells, have chest pain, palpitations , shortness of breath, nausea, vomiting, please return to the emergency room immediately. Referrals: Frank Henry MD [Staff Physician] - 1 Week Hayley Ogden [Non Staff, Medical] - 1 Week Disposition: HOME - Home Medications Comprehensive Discharge Medication List: Ambulatory Orders Multivitamin [Multivitamins] 1 each PO UTDICT 10/02/13 Docusate Sodium [Colace -] 100 mg PO TID capsule 09/13/18 Polyethylene Glycol 3350 [Miralax 119 gm Btl -] 17 gm PO DAILY PRN #1 bottle 04/24 Sennosides [Senna -] 2 tab PO HS tablet 09/13/18 Problem List - Problems (1) Constipation Code(s): K59.00 - CONSTIPATION, UNSPECIFIED (2) Near syncope Code(s): R55 - SYNCOPE AND COLLAPSE This patient is new to me today: Yes Date on this admission: 09/13/18 Emergency Visit: Yes ED Registration Date: 09/12/18 Care time: The patient presented to the Emergency Department on the above date and was hospitalized for further evaluation of their emergent condition. Critical Care patient: No - Discharge Referral Referred to [facility] Med P.C[facility] No
[2018-09-13] MEDS ORDERED: SENNOSIDES 8.6MG TABLET (FP) PO SCH (22:00)
== END 2018-09-13 17:50 | disposition home or self-care (01) ==
LOC: JER 14:59 → JERBED 21:47 → J4W 09-13 01:59
PROVIDERS: ADMIT Internal Medicine; ATTEND Hospitalist
PROC: 3E033GC Introduction of Other Therapeutic Substance into Peripheral Vein, Percutaneous Approach (ICD-10-PCS; principal; 2018-09-12)
PROC: 3E013GC Introduction of Other Therapeutic Substance into Subcutaneous Tissue, Percutaneous Approach (ICD-10-PCS; 2018-09-12)
DX: R55 Syncope and collapse (principal); K59.00 Constipation, unspecified; D72.829 Elevated white blood cell count, unspecified; K21.9 Gastro-esophageal reflux disease without esophagitis; D25.9 Leiomyoma of uterus, unspecified; Z87.440 Personal history of urinary (tract) infections; Z90.79 Acquired absence of other genital organ(s)
CPT/HCPCS: 36415; 70450-TC; 71046-TC-FY; 74178-TC; 76830-TC; 76856-TC; 80048; 80053; 81003; 81015; 82962; 83690; 83735; 84100; 84443; 84484; 84703; 85025; 85027; 87086; 87186; 93005; 93010; 93017; 93018; 93306-TC; 99284-25; G0378

== ENCOUNTER 2021-04-20 01:17 | Observation (INO) | payer OTHER ==
[2021-04-20] MEDS ORDERED: ACETAMINOPHEN 500 MG TABLET (FP) PO ONE (02:22)
[2021-04-20] MEDS ORDERED: LIDOCAINE 5% TOPICAL PATCH TP ONE ×2 (02:23→07:38)
[2021-04-20 02:59] LABS: BASO % 0.3 % (0-2.0); EOS % 0.5 % (0-4.5); HEMATOCRIT 42.5 % (32.4-45.2); HEMOGLOBIN 14.4 GM/dL (10.7-15.3); LYMPH % 11.6 % (8-40); MCH 29.1 pg (25.7-33.7); MCHC 33.9 g/dl (32.0-36.0); MEAN CELL VOLUME 85.9 fl (80-96); MEAN PLT VOLUME 8.6 fl (7.5-11.1); MONO % 4.6 % (3.8-10.2); PLATELET COUNT 262 10^3/uL (134-434); RBC 4.94 M/mm3 (3.60-5.2); WHITE BLOOD COUNT 10.3 K/mm3 (4.0-10.0)
[2021-04-20 03:07] LABS: INR 0.92 (0.83-1.09); PROTHROMBIN TIME (PATIENT) 11.3 SEC (9.7-13.0)
[2021-04-20 03:09] LABS: ACTIVATED PTT 26.8 SECONDS (25.2-36.5)
[2021-04-20 03:11] LABS: CALCIUM 9.1 mg/dL (8.5-10.1)
[2021-04-20 03:12] LABS: ALBUMIN 3.8 g/dl (3.4-5.0); MAGNESIUM 2.1 mg/dL (1.8-2.4)
[2021-04-20 03:14] LABS: URINE BARBITURATES NEGATIVE (NEGATIVE)
[2021-04-20 03:15] LABS: CREATININE 1.2 mg/dL (0.55-1.3)
[2021-04-20 03:15] LABS: OPIATES, URI NEGATIVE (NEGATIVE); PHENCYCLIDINE,URINE NEGATIVE (NEGATIVE); URINE BENZODIAZEPINES NEGATIVE (NEGATIVE)
[2021-04-20 03:16] LABS: BILIRUBIN,TOTAL 0.3 mg/dL (0.2-1); TOT PROT 7.1 g/dl (6.4-8.2)
[2021-04-20 03:27] LABS: URINE APPEARANCE CLEAR; URINE BILIRUBIN NEGATIVE (NEGATIVE); URINE COLOR YELLOW; URINE GLUCOSE (UA) NEGATIVE (NEGATIVE); URINE KETONE NEGATIVE (NEGATIVE); URINE LEUK ESTERASE NEGATIVE (NEGATIVE); URINE NITRITE NEGATIVE (NEGATIVE); URINE PROTEIN NEGATIVE (NEGATIVE); URINE UROBILINOGEN 0.2 mg/dL (0.2-1.0)
[2021-04-20] MEDS ORDERED: ACETAMINOPHEN 325 MG TABLET (FP) ONE (03:27)
[2021-04-20] MEDS ORDERED: LIDOCAINE 5% TOPICAL PATCH ONE ×2 (03:27→08:31)
[2021-04-20] MEDS ORDERED: SODIUM CHLORIDE 0.9% 1000 ML INFUS.BAG IV ONE (03:32)
[2021-04-20 03:45] LABS: COCAINE, UR NEGATIVE (NEGATIVE); METHADONE, UR NEGATIVE (NEGATIVE); URINE AMPHETAMINES NEGATIVE (NEGATIVE)
[2021-04-20] MEDS ORDERED: morphine CARPU-JECT 4 MG/1 ML DISP.SYRIN IVPUSH ONE (04:36)
[2021-04-20] MEDS ORDERED: morphine SULFATE 4 MG/ML VIAL ONE (04:38)
[2021-04-20] MEDS ORDERED: IBUPROFEN 400 MG TABLET (FP) PO PRN (06:19)
[2021-04-20] MEDS ORDERED: ACETAMINOPHEN 325 MG TABLET (FP) PO PRN (06:19)
[2021-04-20] MEDS ORDERED: traMADol HCL 50 MG TABLET PO PRN (07:36)
[2021-04-20 07:47] LABS: CHOLESTEROL 215 mg/dL (50-200); PHOSPHOROUS 3.2 mg/dL (2.5-4.9); TRIGLYCERIDES 136 mg/dL (0-150)
[2021-04-20 07:49] LABS: LDL CHOLESTEROL (ONLY SJRH) 141 mg/dL (5-100)
[2021-04-20 07:50] LABS: HDL CHOLESTEROL 47 mg/dL (40-60)
[2021-04-20] MEDS: CYCLOBENZAPRINE HCL 5 MG TABLET PO PRN (08:30)
[2021-04-20] MEDS ORDERED: SODIUM CHLORIDE 1,000 ML IV SCH (09:30)
[2021-04-20] MEDS ORDERED: IBUPROFEN 800 MG/8 ML IJ IVPB PRN (09:31)
[2021-04-20] MEDS ORDERED: IBUPROFEN 800 MG/8 ML IJ IVPB ONE (17:18)
[2021-04-20] MEDS ORDERED: LIDOCAINE PATCH REMOVAL MC SCH (22:00)
[2021-04-20] MEDS ORDERED: LIDOCAINE PATCH REMOVAL MC ONE (22:00)
[2021-04-20 22:57] VITALS: BMI 31.8
[2021-04-21 07:41] LABS: BASO % 0.5 % (0-2.0); EOS % 0.7 % (0-4.5); HEMATOCRIT 40.7 % (32.4-45.2); HEMOGLOBIN 14.1 GM/dL (10.7-15.3); LYMPH % 21.5 % (8-40); MCH 29.5 pg (25.7-33.7); MCHC 34.6 g/dl (32.0-36.0); MEAN CELL VOLUME 85.3 fl (80-96); MEAN PLT VOLUME 8.3 fl (7.5-11.1); MONO % 6.6 % (3.8-10.2); NEUT % 70.7 % (42.8-82.8); PLATELET COUNT 231 10^3/uL (134-434); RBC 4.78 M/mm3 (3.60-5.2); RDW 12.8 % (11.6-15.6); WHITE BLOOD COUNT 7.9 K/mm3 (4.0-10.0)
[2021-04-21 07:59] LABS: ALBUMIN 3.2 g/dl (3.4-5.0); BLOOD UREA NITROGEN 16.3 mg/dL (7-18); CALCIUM 8.5 mg/dL (8.5-10.1); MAGNESIUM 2.1 mg/dL (1.8-2.4)
[2021-04-21 08:04] LABS: BILIRUBIN,TOTAL 0.5 mg/dL (0.2-1); TOT PROT 6.3 g/dl (6.4-8.2)
[2021-04-21] MEDS: CYCLOBENZAPRINE HCL 5 MG TABLET PO PRN (08:31)
[2021-04-21] MEDS ORDERED: LIDOCAINE 5% TOPICAL PATCH TP ONE (09:13)
[2021-04-21] MEDS ORDERED: IBUPROFEN 800 MG/8 ML IJ IVPB ONE (09:36)
[2021-04-21 16:15] VITALS: BP 126/85; PULSE 86; TEMP 98.1
[2021-04-21] MEDS ORDERED: LIDOCAINE PATCH REMOVAL MC ONE (22:00)
[2021-04-21] MEDS ORDERED: ATORVASTATIN CA 20 MG TABLET (FP) PO SCH (22:00)
== END 2021-04-21 19:27 | disposition home or self-care (01) ==
LOC: JER 01:17 → INTOOBSV 04:43 → JERBED 04:43 → J4W 23:49
PROVIDERS: ADMIT Hospitalist; ATTEND Internal Medicine
PROC: 3E033GC Introduction of Other Therapeutic Substance into Peripheral Vein, Percutaneous Approach (ICD-10-PCS; principal; 2021-04-20)
PROC: 3E033NZ Introduction of Analgesics, Hypnotics, Sedatives into Peripheral Vein, Percutaneous Approach (ICD-10-PCS; 2021-04-20)
PROC: 3E0337Z Introduction of Electrolytic and Water Balance Substance into Peripheral Vein, Percutaneous Approach (ICD-10-PCS; 2021-04-20)
DX: R55 Syncope and collapse (principal); N39.0 Urinary tract infection, site not specified; G89.29 Other chronic pain; D25.9 Leiomyoma of uterus, unspecified; Z29.9 Encounter for prophylactic measures, unspecified; M54.5 Low back pain; E66.8 Other obesity; Z68.31 Body mass index [BMI] 31.0-31.9, adult; Z88.8 Allergy status to other drugs, medicaments and biological substances; J30.1 Allergic rhinitis due to pollen
CPT/HCPCS: 36415; 70450-TC; 71275-TC; 72100-TC-FY; 74174-TC; 80053; 80061; 80307; 81003; 82550; 82553; 83036; 83605; 83721; 83735; 84100; 84436; 84443; 84484; 85025; 85610; 85730; 87086; 93005; 93010; 95816; 96374; 96375; 97116-GP; 97162-GP; 99285-25; C9803; G0378; U0003; U0005

== ENCOUNTER 2024-05-20 13:53 | Emergency (ER) | payer OTHER ==
[2024-05-20 14:13] VITALS: BP 175/93; PULSE 84; RESP 16; TEMP 98.6; BMI 29.8
[2024-05-20] MEDS ORDERED: LIDOCAINE HCL 1%, 10 MG/ML (20ML VIAL) ONE (15:48)
[2024-05-20] MEDS: LIDOCAINE HCL 1%, 10 MG/ML (50 mL VIAL) SQ ONE (16:23)
== END 2024-05-20 16:23 | disposition home or self-care (01) ==
LOC: JERFT 13:53
DX: S92.511A Displaced fracture of proximal phalanx of right lesser toe(s), initial encounter for closed fracture (principal); W22.8XXA Striking against or struck by other objects, initial encounter
CPT/HCPCS: 73630-TC-RT-FY; 99283-25